=== PATIENT | male | born 1965 | race Caucasian/White ===

== ENCOUNTER 2020-01-02 09:34 | Emergency (ER) | payer OTHER, SELFPAY ==
[2020-01-02 09:40] VITALS: BP 144/66; PULSE 87; RESP 16; TEMP 36.9; O2SAT 96; BMI 50.1
--- NOTE | 2020-01-02 09:53 | ED.SKABFB ---
HPI - Skin/Abscess/Foreign Bdy General Chief complaint: Skin/Abscess/Foreign Body Stated complaint: rt side of back sick waist Time Seen by Provider: 01/02/20 09:48 Source: patient Mode of arrival: Ambulatory Limitations: no limitations History of Present Illness HPI narrative: 54-year-old male here for evaluation what he thinks is either a cyst or an abscess in his right lower back. He states that he has had a lump in that area for many years now just recently started to become more painful become enlarged. He has never had an abscess in the past that needed drain however he has had a cyst on his left arm that needed to be removed. Has not seen his primary doctor for this. Came in because of the increase in discomfort. Related Data Allergies Allergy/AdvReac Type Severity Reaction Status Date / Time Penicillins Allergy Verified 01/02/20 09:45 Review of Systems Constitutional Constitutional: Denies headache(s) ENT Ears, Nose, Mouth, and Throat: Denies headache(s) Musculoskeletal Comments: No joint lower back pain Integumentary/Breasts Comments: Swelling with pain right lower back Neurologic Neurologic: Denies headache(s) Hematologic/Lymphatic Hematologic/Lymphatic: Denies easy bleeding and Denies easy bruising Allergic/Immunologic Allergic/Immunologic: Denies urticaria Patient History Medical History Cyst (Inactive) Social History Smoking Status: Unknown if ever smoked Smoking Status: Unknown if ever smoked alcohol intake frequency: holidays/special occasions only Substance Use Type: does not use Exam Initial Vital Signs Initial Vital Signs: Vital Signs Temperature 98.5 F 01/02/20 09:40 Pulse Rate 87 01/02/20 09:40 Respiratory Rate 16 01/02/20 09:40 Blood Pressure 144/66 H 01/02/20 09:40 Pulse Oximetry 96 01/02/20 09:40 Const General: cooperative, comfortable and well developed Limitations: mental status not altered HENMI Head: normal to inspection and normocephalic Resp Effort & Inspection: normal respiratory effort Skin Other: Patient with only minor redness however it does overlie a 5 x 5 area of induration in his right lower back region. Neuro General: patient alert and patient awake Extrem General: normal to inspection and capillary refill normal Psych Appearance: grossly normal and well kempt Procedures Abscess I/D I&D #1: Site: back Side (if applicable): right Local Anesthetic: lidocaine 1% and with bicarb Amount of anesthesia used (mL): 5 Technique: incised with #11 blade Irrigation: No Packing used?: none Course Orders Ordered: Discontinued Medications Lidocaine/Sodium Bicarbonate (Buffered Lidocaine 10 Ml Syr) 10 ml INJ NOW ONE Stop: 01/02/20 09:55 Last Admin: 01/02/20 09:59 Dose: 10 ml Documented by: SAL Vital Signs Vital signs: Vital Signs - 8 hr 01/02/20 09:40 Temperature 98.5 F Pulse Rate 87 Respiratory Rate 16 Blood Pressure 144/66 H Pulse Oximetry 96 MDM - Skin/Abscess/Foreign Bdy MDM Narrative Medical decision making narrative: Bedside ultrasound does show an area of induration filled with what appeared to be liquid material. Had a discussion with the patient that this could potentially be an abscess versus a cyst. Informed that if it was a cyst there is a potential that it would return to spider interventions today and he potentially would need surgical intervention. He expressed understanding of this and after this discussion decided to have the incision and drainage performed. It was done as described above. It does appear to be a cyst as there was no purulent material. Was covered with a bandage. He is going to contact his primary provider for follow-up. He is given care instructions and return precautions. He expressed understanding and agreement. Discharge Plan Departure Patient Disposition: Home Clinical Impression: Cyst Discharge Date/Time: 01/02/20 10:16 Instructions: Epidermal Cyst Activity Restrictions/Additional Instructions: Expect some oozing from the area. Change the bandage as needed. You can shower like normal. Recommend you keep all of your medical appointments. I do suspect that this was a cyst and it is less likely an abscess. Talk with your primary doctor about definitive treatment such as removal.
[2020-01-02] MEDS: LIDO 1%/SOD BICARB 8.4% (10ML) 10 ML SYRINGE INJ (09:59)
== END 2020-01-02 10:16 | disposition home or self-care (01) ==
LOC: ED 10:21
PROVIDERS: Emergency Provider Emergency Medicine
DX: L72.9 Follicular cyst of the skin and subcutaneous tissue, unspecified (principal)
CPT/HCPCS: 10060; 99281; 99283

== ENCOUNTER → 2021-06-02 11:47 | Outpatient (CLI) | payer OTHER, SELFPAY ==
[2021-06-02 14:08] LABS: HEMOLYSIS 16 (0-50); Iron 88 ug/dL (49-181)
[2021-06-02 14:20] LABS: Percent Iron Saturation 23 % (20-50); Total Iron Binding Capacity 376 ug/dL (261-462); Transferrin 287 mg/dL (206-381)
[2021-06-02 14:39] LABS: Ferritin 117 ng/mL (18-464)
[2021-06-03 08:06] LABS: Alpha 1 Anti Trypsin 98 mg/dL (101-187); Ceruloplasmin 25.4 mg/dL (16.0-31.0)
[2021-06-04 14:01] LABS: ANA Screen, IFA Negative (.)
[2021-06-05 13:22] LABS: Smooth Muscle Antibody 10 Units (0-19)
== END ==
PROVIDERS: PCP Physician Assistant; Referring Provider Internal Medicine Gastroenterology; Visit Provider Internal Medicine Gastroenterology
DX: R94.5 Abnormal results of liver function studies (principal)
CPT/HCPCS: 36415; 82103; 82390; 82728; 83516; 83540; 83550; 86038

== ENCOUNTER 2023-10-06 16:21 | Emergency (ER) | payer OTHER, SELFPAY ==
[2023-10-06 16:27] VITALS: BP 119/74; PULSE 79; RESP 17; TEMP 36.6; O2SAT 98; BMI 50.1
--- NOTE | 2023-10-06 16:27 | DI.RAD.S_ITS ---
PROCEDURE: XR WRIST LT MIN 3V INDICATIONS: injury, pain near base/side of 1st cmc joint of wrist TECHNIQUE: 4 views of the wrist were acquired. COMPARISON: None. FINDINGS: Bones: Well-defined ossification along the radial side of the scaphoid, at the base of the triquetrum. Remote triquetral fracture along the dorsal surface. Soft tissues: No suspicious soft tissue calcifications. IMPRESSION: Well-defined ossification along the radial side of the scaphoid, at the base of the triquetrum. Findings likely represent a sequela of prior injury, although acute injury is not entirely excluded given site of pain. Cross-sectional imaging could be considered for confirmation. Additionally, there is a remote triquetral fracture. Dictated by: Sudarshan Ayon M.D. on 10/06/2023 at 17:04 Approved by: Sudarshan Ayon M.D. on 10/06/2023 at 17:06
--- NOTE | 2023-10-06 16:31 | ED.EXTPRO ---
HPI - Extremity Problem <Chacorta Rai PA-C - Last Filed: 10/06/23 17:41> General Chief complaint: Extremity Injury, Upper Stated complaint: lt hand pain History of Present Illness HPI Narrative: This is a 57-year-old male presents emergency department due to acute on chronic left wrist pain. 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 He states he was some pain with range of motion in his wrist. Denies any numbness. No acute injuries to the wrist. Requesting an x-ray. Related Data Home Medications Medication Instructions Recorded Confirmed carvedilol 25 mg tablet 25 mg PO BID 10/06/23 10/06/23 clopidogrel 75 mg tablet 75 mg PO DAILY 10/06/23 10/06/23 fluoxetine 20 mg capsule 20 mg PO DAILY 10/06/23 10/06/23 losartan 50 mg tablet 50 mg PO BID 10/06/23 10/06/23 metformin 500 mg tablet,extended 1,000 mg PO BID 10/06/23 10/06/23 release 24 hr rosuvastatin 20 mg tablet 20 mg PO DAILY 10/06/23 10/06/23 Previous Rx's Medication Instructions Recorded acetaminophen 500 mg tablet 500 mg PO Q6H PRN pain #60 tabs 10/06/23 (Tylenol Extra Strength) ibuprofen 600 mg tablet 600 mg PO Q8H PRN pain #60 tabs 10/06/23 Allergies Allergy/AdvReac Type Severity Reaction Status Date / Time Penicillins Allergy Verified 10/06/23 16:30 Review of Systems <Chacorta Rai PA-C - Last Filed: 10/06/23 17:41> Review of Systems Narrative: GENERAL: Denies chills, fatigue, malaise, fever, sweats. HEENT: Denies sinus pain, ear pain, sore throat, difficulty swallowing, dizziness. RESPIRATORY: Denies dyspnea, cough, wheezing, hemoptysis, sputum. CARDIOVASCULAR: Denies chest pain, palpitations, orthopnea, edema, GASTROINTESTINAL: Denies nausea, vomiting, abdominal pain, diarrhea, constipation, melena. : Denies dysuria, frequency, incontinence, hematuria, urinary retention. MUSCULOSKELETAL: Reports left wrist pain SKIN: Denies rash, skin lesions, or other NEUROLOGIC: Denies weakness, headache, numbness, change in speech, confusion, seizures, incoordination. PSYCHIATRIC: No concerning psychosocial issues. 12 point review of systems is negative except for those stated above Patient History <Chacorta Rai PA-C - Last Filed: 10/06/23 17:41> Medical History (Updated 10/06/23 @ 17:30 by Chacorta Rai PA-C) Cyst Social History Smoking Status: Unknown if ever smoked Smoking Status: Unknown if ever smoked alcohol intake frequency: holidays/special occasions only Substance Use Type: does not use Exam <Chacorta Rai PA-C - Last Filed: 10/06/23 17:41> Narrative Exam Narrative: GENERAL: Well-developed patient, in mild distress. HEAD: Atraumatic. Normocephalic. EYES: Pupils equal round and reactive. Extraocular motions intact. No scleral icterus. No injection or drainage. ENT: Nose without bleeding, purulent drainage. Throat without erythema, tonsillar hypertrophy or exudate. Airway patent. NECK: Trachea midline. Non tender EXTREMITIES: Left-sided snuffbox tenderness. Neurovascularly intact throughout. No significant changes in range of motion. No erythema or warmth to the touch. NEURO: AOx3. SKIN: No rash or erythema of visible areas Initial Vital Signs Initial Vital Signs: Vital Signs Temperature 98 F 10/06/23 16:27 Pulse Rate 79 10/06/23 16:27 Respiratory Rate 17 10/06/23 16:27 Blood Pressure 119/74 10/06/23 16:27 Pulse Oximetry 98 10/06/23 16:27 Oxygen Delivery Method Room Air 10/06/23 16:27 <Ira Campos MD - Last Filed: 10/06/23 18:05> Initial Vital Signs Initial Vital Signs: Vital Signs Temperature 98 F 10/06/23 16:27 Pulse Rate 79 10/06/23 16:27 Respiratory Rate 17 10/06/23 16:27 Blood Pressure 119/74 10/06/23 16:27 Pulse Oximetry 98 10/06/23 16:27 Oxygen Delivery Method Room Air 10/06/23 16:27 Procedures <Chacorta Rai PA-C - Last Filed: 10/06/23 17:41> Orthopedic Splinting/Casting Injury #1: Time of procedure: 17:40 Side: left Upper Extremity Injury Location: wrist Upper Extremity Immobilizer: thumb spica Post splinting neuro exam: intact Post splinting vascular exam: intact Placed by: Nursing Course <Chacorta Rai PA-C - Last Filed: 10/06/23 17:41> Orders Ordered: ED Orders 10/06/23 16:27 XR wrist LT min 3V Stat Vital Signs Vital signs: Vital Signs - 8 hr 10/06/23 16:27 10/06/23 17:46 Temperature 98 F Pulse Rate 79 71 Respiratory Rate 17 14 Blood Pressure 119/74 166/78 H Pulse Oximetry 98 96 Oxygen Delivery Method Room Air Room Air <Ira Campos MD - Last Filed: 10/06/23 18:05> Orders Ordered: ED Orders 10/06/23 16:27 XR wrist LT min 3V Stat Vital Signs Vital signs: Vital Signs - 8 hr 10/06/23 16:27 10/06/23 17:46 Temperature 98 F Pulse Rate 79 71 Respiratory Rate 17 14 Blood Pressure 119/74 166/78 H Pulse Oximetry 98 96 Oxygen Delivery Method Room Air Room Air MDM - Extremity (Nontraumatic) <Chacorta Rai PA-C - Last Filed: 10/06/23 17:41> Imaging Data Extremity x-ray #1: Radiologist's Impression: [place] [address] XRay Report Signed Patient: Ravin Franco MR#: [id number] : 1965 Acct:[id number] Age/Sex: 57 / M Date of Service: 10/06/23 Loc: ED Accession Number: [id number] Procedure: XR wrist LT min 3V Ordering Provider: Chacorta Rai P.A-C PROCEDURE: XR WRIST LT MIN 3V INDICATIONS: injury, pain near base/side of 1st cmc joint of wrist TECHNIQUE: 4 views of the wrist were acquired. COMPARISON: None. FINDINGS: Bones: Well-defined ossification along the radial side of the scaphoid, at the base of the triquetrum. Remote triquetral fracture along the dorsal surface. Soft tissues: No suspicious soft tissue calcifications. IMPRESSION: Well-defined ossification along the radial side of the scaphoid, at the base of the triquetrum. Findings likely represent a sequela of prior injury, although acute injury is not entirely excluded given site of pain. Cross-sectional imaging could be considered for confirmation. Additionally, there is a remote triquetral fracture. Dictated by: Sudarshan Ayon M.D. on 10/06/2023 at 17:04 Approved by: Sudarshan Ayon M.D. on 10/06/2023 at 17:06 [facility] Narrative Medical decision making narrative: ED course: This is a 57-year-old male presents to the emergency department due to acute on chronic left wrist pain. X-ray showed a well-defined ossification of the radial side of the scaphoid at the base of the triquetrum likely representing sequela of prior injury. Patient does not recall any fractures in the past and based on the pain in the significant snuffbox tenderness we will treat conservatively in a thumb spica splint until he was able to be re-evaluated by ortho. Ortho referral placed. X-ray findings did state a remote triquetral fracture although patient was not present with any tenderness to this area. Patient was placed in a thumb spica splint. Pain management discussed and shared decision-making utilized and patient will be treated with ibuprofen and Tylenol. CC: Left wrist pain Complicating co-morbidities: None Data collected from: Previous notes Medical records reviewed: Patient was seen here 4 years ago due to a cyst to the lower back. No pertinent medical history. Incision and drainage was performed. Differential considered, but not limited to: Scaphoid fracture, tendinitis, neurovascular injury Exam documented above, pertinent findings include: Snuffbox tenderness to palpation Lab Test results independently reviewed as above. Pertinent findings: Now obtained Imaging studies independently reviewed: As above Scores Used: None MIPS Elements: None Consultations: None Treatments: Thumb spica splint Re-evaluations: Neurovascularly intact post splint placement. Discussion: Discussed plan with the patient was comfortable with the plan Diagnosis: Left wrist pain Disposition: see below, along with detailed discharge instructions that have been reviewed with patient as well as indications for ED re-evaluation and additional outpatient follow up Discharge Plan Departure Patient Disposition: Home Clinical Impression: Acute pain of left wrist Activity Restrictions/Additional Instructions: Thank you for coming to the [facility] Emergency Department today. As we discussed your x-rays show findings concerning for possible fracture to your hand bones. Please call the orthopedist's whose information is attached for follow up visit. Please do not bear any weight on the hand until you are able to see them.. Please return to the emergency department if you develop any significant pain, fevers, redness going up the hand, numbness, or any other concerning signs or symptoms. I hope you feel better soon. Please follow up with your primary care provider within a week if your symptoms continue. If you do not have a primary care provider please contact the [facility] Resource line at [phone]. They will ask some questions about your medical history and help you get set up with a provider in the community. Prescriptions: New ibuprofen 600 mg tablet 600 mg PO Q8H PRN (Reason: pain) Qty: 60 0RF acetaminophen [Tylenol Extra Strength] 500 mg tablet 500 mg PO Q6H PRN (Reason: pain) Qty: 60 0RF No Action losartan 50 mg tablet 50 mg PO BID carvedilol 25 mg tablet 25 mg PO BID clopidogrel 75 mg tablet 75 mg PO DAILY fluoxetine 20 mg capsule 20 mg PO DAILY metformin 500 mg tablet extended release 24 hr 1,000 mg PO BID rosuvastatin 20 mg Tablet 20 mg PO DAILY Referrals: Noe Saini PA-C [Primary Care Provider] - Robert Paez MD [Physician] - (f/u possible scaphoid fx, thank you! ) Stand Alone Forms: Patient Portal/API ED Sign-out <Ira Campos MD - Last Filed: 10/06/23 18:05> Cosign ED Attending Tess Attestation: I was immediately available in the department for consultation throughout this patient's visit. Ira Campos MD
--- NOTE | 2023-10-06 16:39 | PC.NURSE ---
patient is left handed with a history of carpel tunnel syndrome flare ups and was working outside yesterday with lawn equipment. He woke today with pain in his left hand. Pain is 8/10. He took (2) 200mg apap for arthritis pain today which he said helped a little.
[2023-10-06 17:46] VITALS: BP 166/78; PULSE 71; RESP 14; O2SAT 96
== END 2023-10-06 17:47 | disposition home or self-care (01) ==
PROVIDERS: Emergency Provider Physician Assistant Medical; PCP Physician Assistant
DX: M25.532 Pain in left wrist (principal); X58.XXXA Exposure to other specified factors, initial encounter
CPT/HCPCS: 29125; 73110; 99283

== ENCOUNTER → 2024-05-15 15:51 | Outpatient (CLI) | payer OTHER, SELFPAY ==
--- NOTE | 2024-05-15 15:53 | DI.ECHO.S_ITS ---
[facility] : : [address] : [facility] : : [place], : : [place] [address] : : Phone: [phone] Echocardiogram Report + + :Name: ROC ANDERSEN Study Date: 05/15/2024 Height: 67 in : :[facility] ReadingLocation: [place] Weight: 214 lb : : Gender: Male BSA: 2.1 m2 : :: 1965 Age: 58 yrs BP: 164/90 mmHg: :Reason For Study: Post IA : :Ordering Physician: TIFFANI, : :ARCENIO Performed By: Vianey Chavez : :Referring: ARCENIO NIXON : + + Interpretation Summary 1) Normal left ventricular size and thickness with low normal systolic function (EF 50-55%). 2) The apical cap is dyskinetic. The distal septum is akinetic. 3) Mildly enlarged right ventricle with normal function. 4) No significant valvular abnormalities. 5) No prior Echo available for comparison. Procedure: A two-dimensional transthoracic echocardiogram with color flow and Doppler was performed. The study quality was technically difficult. The patient had an echocardiogram, but there is no comparison study available. A contrast injection of Definity was performed to improve assessment of LV function. The patient was in sinus rhythm with heart rates between 68-95 bpm during the exam. Left Ventricle: The left ventricle is normal in size and wall thickness. The ejection fraction is estimated to be 50-55%. The apical cap is dyskinetic. The distal septum is akinetic. Diastolic parameters suggest a relaxation abnormality of the left ventricle, consistent with probable normal filling pressures. Right Ventricle: The right ventricle is mildly dilated. The right ventricular systolic function is normal. Atria: Both atria are normal in size. There is no Doppler evidence for an interatrial shunt. Mitral Valve: The mitral valve leaflets are slightly calcified. There is no mitral valve stenosis. There is trace mitral regurgitation. Aortic Valve: The aortic valve is trileaflet. The aortic valve opens well. There is no aortic valve stenosis. No aortic regurgitation is present. Tricuspid Valve: The tricuspid valve leaflets are thin and pliable. Pulmonary artery pressures cannot be estimated because of the lack of a measurable TR jet velocity but the IVC suggests a CVP of around 3 mmHg. Pulmonic Valve: The pulmonic valve leaflets are thin and pliable; valve motion is normal. There is no pulmonic valvular regurgitation. Great Vessels: The aortic root is normal size. The ascending aorta could not be visualized. The aortic arch could not be visualized. The pulmonary artery is normal size. The IVC is of normal diameter and collapses greater than 50% with a sniff. This suggests a low right atrial pressure of 3 mm Hg. Pericardium/ Pleura There is an anterior echo-free space consistent with a fat pad. There is no pericardial effusion. There is no pleural effusion. MMode/2D Measurements & Calculations LVIDd: 5.6 cm AoV Openin.1 cm LVIDs: 5.2 cm LVOT diam: 2.6 cm IVSd: 0.52 cm Ao root diam: 3.6 cm LVPWd: 1.0 cm LV dupont. diameter/BSA (cm/m^2): 2.7 LV sys. diameter/BSA (cm/m^2): 2.5 FS: 8.6 % EPSS: 1.00 cm LA A2 area: 20.6 cm2 RA long axis: 5.6 cm LA A4 area: 21.7 cm2 RA area: 20.3 cm2 LA length (vol): 5.8 cm RA vol: 62.1 ml LA vol: 66.0 ml RA : 29.9 ml/m2 LA vol index: 31.7 ml/m2 TAPSE: 2.4 cm IVC diam: 2.0 cm Doppler Measurements & Calculations Ao V2 max: 104.6 cm/sec LVOT Max Chintan: 89.8 cm/sec Ao V2 mean: 82.0 cm/sec LV V1 max P.2 mmHg Ao V2 VTI: 23.6 cm LV V1 VTI: 20.4 cm Ao max P.4 mmHg Ao mean P.9 mmHg JOVANNI(I,D): 4.4 cm2 MV E max chintan: 69.3 cm/sec JOVANNI(V,D): 4.4 cm2 MV A max chintan: 75.3 cm/sec JOVANNI indexed to BSA (cm^2/m^2): 2.1 MV E/A: 0.92 sev ratio: 0.86 Med Peak E' Chintan: 4.3 cm/sec E/E' med: 16.1 Lat Peak E' Chintan: 8.4 cm/sec E/E' lat: 8.3 E/e' average: 12.2 MV dec time: 0.23 sec PA V2 max: 75.6 cm/sec MV mean P.4 mmHg PA V2 mean: 46.9 cm/sec MVA(VTI): 5.0 cm2 PA mean P.0 mmHg PA pr(Accel): 17.3 mmHg MV V2 mean: 57.8 cm/sec SV(LVOT): 105.2 ml MV V2 VTI: 21.1 cm Reading Physician:10:32 PM
== END ==
PROVIDERS: PCP Physician Assistant; Referring Provider Family Medicine; Visit Provider Family Medicine
DX: I25.10 Atherosclerotic heart disease of native coronary artery without angina pectoris (principal); I25.2 Old myocardial infarction
CPT/HCPCS: 93306; Q9957